=== PATIENT | male | born 1980 | race African-American/Black ===

== ENCOUNTER 2022-10-05 09:53 | Emergency (ER) | payer OTHER ==
[~2022-10-05] VITALS: Ht 165.1 cm; Wt 73.0 kg
[2022-10-05] MEDS ORDERED: LORAZEPAM 2MG/ML CPJ IV STA (10:23)
[2022-10-05] MEDS ORDERED: DIPHENHYDRAMINE 50MG/ML VIAL IV STA (10:23)
[2022-10-05] MEDS ORDERED: HALOPERIDOL LACTATE 5MG/ML VIAL IM STA (10:23)
[2022-10-05] MEDS ORDERED: SODIUM CHLORIDE 0.9% 1,000 ML IV ONE (10:30)
[2022-10-05 11:27] LABS: CHLORIDE 109 mEq/L (98-107); HEMATOCRIT. 39.9 % (42.0-52.0); HEMOGLOBIN. 13.8 g/dL (14.0-18.0); MEAN CORPUSCULAR HEMOGLOBIN 30.9 pg (28.0-32.0); MEAN CORPUSCULAR VOLUME 89.2 fL (80.0-94.0); MEAN PLATELET VOLUME 8.6 fl (7.4-10.4); PLATELET 232 x1000/uL (130-400); RED BLOOD CELL COUNT 4.48 mill/uL (4.7-6.1); RED CELL DISTRIBUTION WIDTH 14.5 % (11.6-14.6)
[2022-10-05 11:37] LABS: ETHANOL BLOOD < 10 mg/dL
[2022-10-05 12:00] VITALS: BP 112/74
[2022-10-05 12:27] LABS: PLATELET ESTIMATE NORMAL
== END 2022-10-05 12:38 | disposition home or self-care (01) ==
LOC: ER 09:59
DX: F15.10 Other stimulant abuse, uncomplicated (principal); R45.1 Restlessness and agitation; R41.0 Disorientation, unspecified
CPT/HCPCS: 36415; 80053; 80320; 85025; 96361; 96372; 96374; 96375; 99291; J1200; J1630; J2060; J7030; Z7610; G0480